=== PATIENT | female | born 2000 | race Caucasian/White ===

== ENCOUNTER 2020-09-15 00:09 | Outpatient (CLI) | payer OTHER ==
[~2020-09-15 00:09] MED LIST: DELSYM30 MG/5 ML PO; EXPECTORANT200 MG PO; FLONASE 0.05% N16 GM; NAPROSYN500 MG PO; ZOFRAN4 MG PO
[2020-09-16] MEDS ORDERED: VALTREX 500 MG500 MG PO (07:24)
[2020-09-16] MEDS ORDERED: VALTREX500 MG PO (07:31)
[2020-09-16] MEDS ORDERED: IBUPROFEN800 MG PO (15:21)
[2020-09-16] MEDS ORDERED: DOCUSATE SODIU100 MG PO (15:21)
[2020-09-16] MEDS ORDERED: HYDROCODON-ACE1 EAC4 PO (15:21)
== END 2020-09-15 03:43 | disposition home or self-care (01) ==
LOC: GENOP 00:09
DX: O26.893 Other specified pregnancy related conditions, third trimester (principal); R10.9 Unspecified abdominal pain; Z3A.36 36 weeks gestation of pregnancy
CPT/HCPCS: 81001; 96360; 96361; J7120

== ENCOUNTER 2020-09-15 18:55 | Outpatient (CLI) | payer OTHER ==
[2020-09-16] MEDS ORDERED: VALTREX 500 MG500 MG PO (07:24)
[2020-09-16] MEDS ORDERED: VALTREX500 MG PO (07:31)
[2020-09-16] MEDS ORDERED: HYDROCODON-ACE1 EAC4 PO (15:21)
[2020-09-16] MEDS ORDERED: IBUPROFEN800 MG PO (15:21)
[2020-09-16] MEDS ORDERED: DOCUSATE SODIU100 MG PO (15:21)
== END 2020-09-15 21:19 | disposition home or self-care (01) ==
LOC: GENOP 18:55
DX: O46.93 Antepartum hemorrhage, unspecified, third trimester (principal); O99.891 Other specified diseases and conditions complicating pregnancy; Z3A.37 37 weeks gestation of pregnancy
CPT/HCPCS: 59025

== ENCOUNTER 2020-09-16 05:34 | Inpatient (IN) | payer OTHER ==
[~2020-09-16] VITALS: Ht 172.7 cm; Wt 74.8 kg
[2020-09-16 06:40] LABS: HEMOGLOBIN 11.1 gm/dl (12.3-15.3); WHITE BLOOD COUNT 17.3 K/UL (4.5-11.0)
[2020-09-16] MEDS ORDERED: VALTREX 500 MG500 MG PO (07:24)
[2020-09-16] MEDS ORDERED: VALTREX500 MG PO (07:31)
[2020-09-16] MEDS ORDERED: IBUPROFEN800 MG PO (15:21)
[2020-09-16] MEDS ORDERED: HYDROCODON-ACE1 EAC4 PO (15:21)
[2020-09-16] MEDS ORDERED: DOCUSATE SODIU100 MG PO (15:21)
[2020-09-17 05:55] LABS: HEMOGLOBIN 9.5 gm/dl (12.3-15.3)
== END 2020-09-18 16:00 | disposition home or self-care (01) | DRG 806 ==
LOC: GENOP 05:34 → OB 06:12
PROVIDERS: Obstetrics & Gynecology; ADMIT Obstetrics & Gynecology
PROC: 10E0XZZ Delivery of Products of Conception, External Approach (ICD-10-PCS; principal; 2020-09-16)
PROC: 10907ZC Drainage of Amniotic Fluid, Therapeutic from Products of Conception, Via Natural or Artificial Opening (ICD-10-PCS; 2020-09-16)
PROC: 0W8NXZZ Division of Female Perineum, External Approach (ICD-10-PCS; 2020-09-16)
PROC: 3E02340 Introduction of Influenza Vaccine into Muscle, Percutaneous Approach (ICD-10-PCS; 2020-09-16)
DX: O60.14X0 Preterm labor third trimester with preterm delivery third trimester, not applicable or unspecified (principal); O98.513 Other viral diseases complicating pregnancy, third trimester; Z37.0 Single live birth; Z3A.36 36 weeks gestation of pregnancy; B00.9 Herpesviral infection, unspecified; Z20.822 Contact with and (suspected) exposure to COVID-19; Z23 Encounter for immunization
CPT/HCPCS: 36415; 59025; 81001; 82800; 85014; 85018; 85025; 87635; 90471; 90686; 90715; 96360; 96361; G0008; J0595; J2001; J2795; J7120

== ENCOUNTER 2020-12-13 23:15 | Emergency (ER) | payer OTHER ==
[~2020-12-13 23:15] MED LIST changes: +DOCUSATE SODIU100 MG PO; +HYDROCODON-ACE1 EAC4 PO; +IBUPROFEN800 MG PO; +VALTREX 500 MG500 MG PO; +VALTREX500 MG PO
[2020-12-14 00:21] LABS: HEMOGLOBIN 14.8 gm/dl (12.3-15.3); RED BLOOD COUNT 5.41 M/UL (4.00-5.10); WHITE BLOOD COUNT 13.6 K/UL (4.5-11.0)
[2020-12-14 00:32] LABS: BUN/CREATININE RATIO 18 (0-10)
== END 2020-12-14 02:35 | disposition home or self-care (01) ==
LOC: ER1 23:15
PROVIDERS: Physician Assistant
DX: R10.11 Right upper quadrant pain (principal); R10.31 Right lower quadrant pain; R11.2 Nausea with vomiting, unspecified; R19.7 Diarrhea, unspecified; F17.210 Nicotine dependence, cigarettes, uncomplicated
CPT/HCPCS: 80053; 81001; 83605; 83735; 84100; 84703; 85025; 85610; 85652; 85730; 86140; 87040; 87086; 99284; Q9967